=== PATIENT | male | born 1965 | race Hispanic/Latino ===

== ENCOUNTER 2022-07-07 05:21 | Emergency (ER) | payer BC ==
[~2022-07-07] VITALS: Ht 175.3 cm; Wt 116.8 kg
[2022-07-07] MEDS ORDERED: ACETAMINOPHEN 325 MG TAB PO ONE (05:30)
[2022-07-07] MEDS ORDERED: IBUPROFEN 800 MG TAB PO ONE (05:30)
[2022-07-07 05:41] LABS: APPEARANCE,URINE CLOUDY (CLEAR); BILIRUBIN,URINE NEGATIVE (NEGATIVE); COLOR,URINE YELLOW (YELLOW); GLUCOSE, URINE (UA) 200 mg/dL (NEGATIVE); KETONES,URINE NEGATIVE (NEGATIVE); LEUKOCYTE ESTERASE ,URINE 500 Leu/uL (NEGATIVE); NITRATE,URINE NEGATIVE (NEGATIVE); OCCULT BLOOD,URINE SMALL (NEGATIVE); PH,URINE 5.5 (5.0-8.0); PROTEIN,URINE 30 mg/dL (NEGATIVE); UROBILINOGEN,URINE 0.2 mg/dL (0.2-1.0)
[2022-07-07 05:46] LABS: MUCUS,URINE RARE LPF (None Seen); SQUAMOUS EPITHELIAL CELL,UR RARE /HPF (0-2); WBC,URINE TNTC /HPF (0-1)
[2022-07-07] MEDS ORDERED: CEFU500T67 PO (05:55)
[2022-07-07] MEDS ORDERED: CEFTRIAXONE 1G VIAL IM ONE (06:00)
[2022-07-07] MEDS ORDERED: IBUPROFEN 600 MG TABLET PO ONE (06:00)
[2022-07-07] MEDS: CEFTRIAXONE 1G VIAL ONE ×2 (06:05→06:15)
[2022-07-07 06:21] VITALS: BP 139/81
== END 2022-07-07 06:18 | disposition home or self-care (01) ==
LOC: EDH 05:21
DX: N39.0 Urinary tract infection, site not specified (principal); E78.00 Pure hypercholesterolemia, unspecified; I10 Essential (primary) hypertension; Z79.1 Long term (current) use of non-steroidal anti-inflammatories (NSAID)
CPT/HCPCS: 99284; 87088; 81001; 96372; J0696